=== PATIENT | female | born 1950 | race Native Hawaiian/Other Pacific Islander ===

== ENCOUNTER 2021-04-01 11:24 | Outpatient (CLI) | payer MEDICARE, SELFPAY ==
--- NOTE | 2021-04-01 11:45 | MM_ITS ---
WS: [id number] BILATERAL SCREENING DIGITAL MAMMOGRAM WITH CAD HISTORY: SCREENING COMPARISON: 08/31/2019, 08/24/2019 and 07/23/2018 Bilateral CC and MLO views submitted. Computer aided detection analyzed. Breast composition: The breasts are heterogeneously dense, which may obscure small masses. No suspici ous masses, microcalcifications or architectural distortion. There are numerous scattered calcificati ons bilaterally within each breast. No focal clusters of calcifications. MM/[place] [id number] IMPRESSION: BI-RADS: 2-Benign FOLLOW UP: 1 Year Follow-up
== END 2021-04-01 11:25 | disposition home or self-care (01) ==
LOC: RADSHAW 11:43
PROVIDERS: Visit Provider Electrodiagnostic Medicine
DX: Z12.31 Encounter for screening mammogram for malignant neoplasm of breast (principal)
CPT/HCPCS: 77067

== ENCOUNTER 2022-04-25 09:37 | Outpatient (CLI) | payer MEDICARE, OTHER, SELFPAY ==
--- NOTE | 2022-04-25 09:58 | MM_ITS ---
WS: [email or web address] VIEWS: MLO and CC views both breasts. 3D digital tomosynthesis is also included in this exam. Comparison made with prior exam of 02/01/2016, 04/13/2017, 07/23/2018, 08/24/2019, 04/01/2021.. Findings: There was no sign of mass, architectural distortion or suspicious calcification in either breast. He terogeneously dense MM/[place] [id number] Impression: BI-RADS: 2-Benign FOLLOW-UP: 1 Year Follow-up This mammogram was also analyzed by the Computer Aided Detection System R2 Imag e Project Buyer.
== END 2022-04-25 09:38 | disposition home or self-care (01) ==
LOC: RAD 09:51
PROVIDERS: PCP Electrodiagnostic Medicine; Visit Provider Electrodiagnostic Medicine
DX: Z12.31 Encounter for screening mammogram for malignant neoplasm of breast (principal)
CPT/HCPCS: 77063; 77067

== ENCOUNTER → 2022-09-17 10:55 | Outpatient (BNVA) | payer MEDICARE, OTHER, SELFPAY | PROVIDERS: PCP Electrodiagnostic Medicine; Visit Provider Nurse Practitioner Family | DX: L30.4 Erythema intertrigo (principal) | CPT/HCPCS: 99214 ==

== ENCOUNTER → 2023-01-14 10:10 | Outpatient (BNVA) | payer MEDICARE, OTHER, SELFPAY | PROVIDERS: PCP Electrodiagnostic Medicine; Visit Provider Psychiatry & Neurology Neurology | DX: G31.84 Mild cognitive impairment of uncertain or unknown etiology (principal); M54.2 Cervicalgia; R26.89 Other abnormalities of gait and mobility; R29.2 Abnormal reflex; R68.89 Other general symptoms and signs | CPT/HCPCS: 36415; 83735; 86780; 99203 ==

== ENCOUNTER 2023-01-27 11:44 | Outpatient (CLI) | payer MEDICARE, OTHER, SELFPAY ==
--- NOTE | 2023-01-27 12:15 | USCV_ITS ---
Zoe Mares Age: 72 Gender: F : 1950 Exam Date: 01/27/2023 11:54 Ordering Phys: Josh Martell MD Technologist: SEVERO Exam Location: [facility] [place] Indication: DIZZINESS AND MEMORY LOSS Risk Factors: Previous Vascular Surgery: Right Brachial BP: / Left Brachial BP: / Right Left Velocity (cm/s) Spectral Plaque Velocity (cm/s) Spectral Plaque Syst/Diast Broadening Syst/Diast Broadening 69.90/ 20.20 Prox CCA 85.50 / 19.20 69.90/ 20.20 Mid CCA 69.90 / 18.60 69.10/ 19.40 Distal CCA 68.50 / 24.20 55.20/ 17.90 Prox ICA 53.60 / 17.40 68.40/ 25.60 Mid ICA 70.70 / 29.50 101.90/39.40 Distal ICA 86.30 / 29.80 72.20 ECA 56.80 1.46 ICA/CCA 1.01 Antegrade Vertebral Antegrade 56.70/ 23.10 cm/s 48.90/ 17.90 cm/s Tri Subclavian Tri 75.10 104.4 0 CONCLUSIONS Right ICA stenosis <50%. Mild atheromatous plaque right carotid bulb/ICA. Left ICA stenosis <50%. Mild atheromatous plaque left carotid bulb/ICA. Intimal thickening in the common carotid arteries and internal carotid arteries bilaterally. Normal antegrade Doppler flow noted in the right vertebral artery. Normal antegrade Doppler flow noted in the left vertebral artery. Dhiraj Emerson MD (Electronically Signed) Final Date: 27 January 2023 16:50 S
== END 2023-01-27 11:45 | disposition home or self-care (01) ==
LOC: RAD 11:45
PROVIDERS: PCP Electrodiagnostic Medicine; Visit Provider Psychiatry & Neurology Neurology
DX: R26.89 Other abnormalities of gait and mobility (principal); I65.23 Occlusion and stenosis of bilateral carotid arteries; R42 Dizziness and giddiness; R41.3 Other amnesia; S09.90XS Unspecified injury of head, sequela; X58.XXXS Exposure to other specified factors, sequela
CPT/HCPCS: 93880

== ENCOUNTER 2023-02-19 09:53 | Outpatient (CLI) | payer MEDICARE, OTHER, SELFPAY ==
--- NOTE | 2023-02-19 10:15 | MR_ITS ---
WS: [email or web address] MRI BRAIN WITHOUT CONTRAST HISTORY: R41.3 - Other amnesia COMPARISON: None available. TECHNIQUE: Diffusion imaging, multiplanar T1, T2 and FLAIR imaging obtained. No evidence for acute infarct or hemorrhage. Tellez-white matter differentiation is normal. Mild volume loss and small vessel ischemic disease. No prior infarct. Mild hippocampal atrophy. Ventricles and extra-axial spaces are normal. No inferior displacement of cerebellar tonsils. The sella turcica and pituitary gland are unremarkabl e. Dural venous sinuses and [place] demonstrate no abnormality on this unenhanced studies. Paranasal sinuses: Clear. Mastoid air cells: Normal. Calvarium and scalp: Intact. IMPRESSION: 1. No acute infarct or hemorrhage. 2. Mild volume loss and atrophy. 3. Very slight atrophy of the hippocampal formations. 4. No prior infarct.
--- NOTE | 2023-02-19 11:00 | MR_ITS ---
WS: [email or web address] MRI CERVICAL SPINE NONCONTRAST HISTORY: R41.3 - Other amnesia COMPARISON: None available. Technique: Multiplanar, multisequence noncontrast imaging of the cervical spine. Diffuse disc space narrowing is moderate throughout the cervical spine. Cervical endplate osteophytes at all levels. No fractures or marrow edema. T2 anterolisthesis by 2.5 mm. Signal within the cervical cord is normal. Visualized posterior fossa is unremarkable. Craniocervical junction, C1 and C2 relationship, odontoid process and soft tissues are normal. C2-C3: Normal. C3-C4: Diffuse osteophytic ridging with bilateral facet joint arthritis. Moderate LEFT and mild RIGHT foraminal stenosis due to osteophytes. C4-C5: Diffuse annular disc bulging and osteophytic ridging. Facet joint arthritis. Mild foraminal na rrowing. C5-C6: Diffuse osteophytic ridging encroaching upon the ventral thecal sac. Mild central and bilatera l foraminal stenosis. C6-C7: Diffuse annular disc bulging, osteophytic ridging and facet arthritis. Mild central and RIGHT foraminal stenosis. C7-T1: Less than 2 mm anterolisthesis of C7. No stenosis. Paraspinal soft tissue are normal. IMPRESSION: 1. Multilevel moderate spondylosis throughout the cervical spine. 2. No acute vertebral body fracture. 3. Osteophytic ridging and disc bulging at most levels of the cervical spine most significant from C3 -4 through C6-7. 4. C3-4: Moderate LEFT and mild RIGHT foraminal stenosis due to osteophytes. 5. C5-6: Mild central and bilateral foraminal stenosis. 6. C6-7: Mild central and RIGHT foraminal stenosis.
== END 2023-02-19 09:54 | disposition home or self-care (01) ==
LOC: RAD 09:53
PROVIDERS: PCP Electrodiagnostic Medicine; Visit Provider Psychiatry & Neurology Neurology
DX: R41.3 Other amnesia (principal); M50.31 Other cervical disc degeneration, high cervical region; M47.812 Spondylosis without myelopathy or radiculopathy, cervical region; M48.02 Spinal stenosis, cervical region; M25.78 Osteophyte, vertebrae
CPT/HCPCS: 70551; 72141

== ENCOUNTER → 2023-04-28 10:27 | Outpatient (BNVA) | payer MEDICARE, OTHER, SELFPAY | PROVIDERS: PCP Electrodiagnostic Medicine; Visit Provider Psychiatry & Neurology Neurology | DX: G31.84 Mild cognitive impairment of uncertain or unknown etiology (principal); M54.2 Cervicalgia; R29.2 Abnormal reflex; R68.89 Other general symptoms and signs | CPT/HCPCS: 99212 ==

== ENCOUNTER → 2023-05-14 11:31 | Outpatient (BNVA) | payer MEDICARE, OTHER, SELFPAY | PROVIDERS: PCP Electrodiagnostic Medicine; Visit Provider Orthopaedic Surgery | DX: M54.2 Cervicalgia (principal); G31.84 Mild cognitive impairment of uncertain or unknown etiology | CPT/HCPCS: 72050; 99204 ==

== ENCOUNTER → 2023-08-11 13:09 | Outpatient (BNVA) | payer MEDICARE, OTHER, SELFPAY | PROVIDERS: PCP Electrodiagnostic Medicine; Visit Provider Psychiatry & Neurology Neurology | DX: G31.84 Mild cognitive impairment of uncertain or unknown etiology (principal); M54.2 Cervicalgia; R29.2 Abnormal reflex; R68.89 Other general symptoms and signs | CPT/HCPCS: 99212 ==

== ENCOUNTER → 2023-10-01 11:15 | Outpatient (BNVA) | payer MEDICARE, OTHER, SELFPAY | PROVIDERS: PCP Electrodiagnostic Medicine; Visit Provider Internal Medicine | DX: E03.9 Hypothyroidism, unspecified (principal); R63.4 Abnormal weight loss; Z13.820 Encounter for screening for osteoporosis; G31.84 Mild cognitive impairment of uncertain or unknown etiology; Z68.21 Body mass index [BMI] 21.0-21.9, adult; Z79.890 Hormone replacement therapy | CPT/HCPCS: 99214 ==

== ENCOUNTER 2023-10-04 23:06 | Emergency (ER) | payer MEDICARE, OTHER, SELFPAY ==
[2023-10-04 23:16] VITALS: BP 144/80; PULSE 63; RESP 17; TEMP 36.7; O2SAT 100; BMI 20.1
--- NOTE | 2023-10-04 23:36 | ED_ITS ---
HPI - Skin/Abscess/Foreign Bdy General: Chief complaint: Skin/Abscess/Foreign Body Stated complaint: Animal bite Time Seen by Provider: 10/04/23 23:23 History of Present Illness: Patient is a 72-year-old female who states that around 7 PM this evening she tried to move her cat out of her windowsill and the cat became very upset and bit her several times on both hands. She sustained multiple superficial bites to the left hand primarily over the dorsum of the left hand around the thumb, index and long finger. She also sustained a couple of bites to the right index finger. No active bleeding. No open wounds requiring closure or sutures. Associated symptoms: Deny chills, fever(s), nausea or vomiting Review of Systems Const: Denies: fever(s), chills or diaphoresis Card: Denies: chest pain Resp: Denies: dyspnea GI: Denies: abdominal pain, nausea or vomiting Skin/Breast: Denies: rash Neuro: Denies: headache(s) [facility] ED PFSH: Social History Smoking and tobacco/nicotine status: never used tobacco/nicotine Alcohol intake: never Substance/Drug Use: never Physical Exam Const: COMMON NORMALS: no acute distress, average body habitus, alert and well nourished GENERAL APPEARANCE: cooperative ORIENTATION/CONSCIOUSNESS: Yes awake HENMT: COMMON NORMALS: normocephalic and atraumatic HEAD & SCALP: normocephalic and atraumatic Eye: COMMON NORMALS: conjunctivae normal CONJUNCTIVA: Yes conjunctivae normal Neck/C-Spine: GENERAL: Yes normal visual inspection Resp: COMMON NORMALS: normal respiratory effort, No retractions and No use of accessory muscles Cardio: COMMON NORMALS: regular rhythm and Peripheral pulses 2+ throughout RHYTHM: regular rhythm PERIPHERAL PULSES: Peripheral pulses 2+ throughout GI: COMMON NORMALS: Soft to palpation and non-tender PALPATION: Yes Soft to palpation Extremity: COMMON NORMALS: full ROM and no pedal edema NARRATIVE EXTREMITY EXAM: Left hand has multiple superficial cat bites and abrasions primarily noted to the dorsum of the hand proximal to the thumb, index and long finger. Some superficial wounds noted to the fingers of the left hand in the thumb, index and long finger. Patient also has a couple of bite wounds to the right index finger with puncture leal. No open lacerations or wounds requiring closure. Left dorsum of the hand around the MCP joint is red and mildly swollen. Patient is neurovascularly intact. Neuro: COMMON NORMALS: no focal motor deficits SENSORIUM/ORIENTATION: Yes alert Skin: COMMON NORMALS: no rashes or lesions noted GENERAL SKIN EXAM: no rashes or lesions noted Course Vital Signs: Vital signs: Vital Signs Temperature 98.1 F 10/04/23 23:16 Pulse Rate 63 10/04/23 23:16 Respiratory Rate 17 10/04/23 23:16 Blood Pressure 144/80 10/04/23 23:16 Pulse Oximetry 100 10/04/23 23:16 Oxygen Delivery Me thod Room Air 10/04/23 23:16 MDM - Skin/Abscess/Foreign Bdy Medicial Decision Making 72-year-old female who sustained cat bite from her home Tonight to the left and right hand. Cat is immunized and they are certainly not having any consideration of euthanasia. They will continue to watch the cat at home. Patient is unsure of her last tetanus immunization will have her tetanus updated. I will give her a dose of Augmentin here tonight and discharged with a prescription for Augmentin. No radiology studies performed this visit Discharge Plan Discharge Patient Disposition: Home Clinical Impression: Cat bite involving extremity Condition: Stable Prescriptions: New amoxicillin-pot clavulanate 875-125 mg tablet 1 tab PO Q12H Qty: 14 0RF No Action levothyroxine 50 mcg capsule 50 mcg PO DAILY multivitamin Tablet 1 tab PO DAILY cholecalciferol (vitamin D3) 25 mcg (1,000 unit) capsule 25 mcg PO DAILY coenzyme Q10 [Co Q-10] 10 mg capsule 10 mg PO TID miconazole nitrate [Zeasorb AF] 2 % powder 1 applic topical DAILY Qty: 85 3RF Rx Instructions: Apply to micro-fiber towel. ketoconazole 2 % cream 1 applic topical BID Qty: 60 3RF Rx Instructions: Apply to affected areas and skin folds x3 weeks. May use as needed for flares. atorvastatin 10 mg tablet 20 mg PO DAILY biotin 1 mg capsule 1 mg PO DAILY levothyroxine 75 mcg tablet PO temazepam 15 mg capsule 30 mg PO ONCE Qty: 60 3RF Rx Instructions: Take 1-2 at bedtime for sleep donepezil 10 mg tablet 10 mg PO DAILY Qty: 30 3RF donepezil 5 mg tablet 5 mg PO DAILY Qty: 7 0RF Rx Instructions: Begin 10 mgs once this is finished Discharge Orders: Discharge ED (Routine); Ordered 10/04/23 Ordered By: Daniel Mcfarlane Referrals: Carlos Manuel Gould DO [Primary Care Provider] - Discharge Activity: Increase activity as tolerated Patient Instructions: Opioid Safety, Pain Management, Animal Bite (ED) Activity Restrictions/Additional Instructions: Keep your wounds clean and dry. Take antibiotics as directed. Follow-up with your primary care provider for recheck in 3 to 5 days. Return for any signs of infection such as increasing redness, swelling, fevers, pain, or any other concerns. Coding Level of Care Code ED Nurse Emergency for Bob Mancia
[2023-10-04] MEDS: amoxicillin-clav 875-125 mg Tablet 1 TAB PO (23:46)
[2023-10-04] MEDS: tetanus-dipt-pertussis 0.5 mL SDV IM (23:46)
== END 2023-10-05 00:01 | disposition home or self-care (01) ==
PROVIDERS: Emergency Provider Student in an Organized Health Care Education/Training Program; PCP Electrodiagnostic Medicine
DX: S60.572A Other superficial bite of hand of left hand, initial encounter (principal); S60.571A Other superficial bite of hand of right hand, initial encounter; W55.01XA Bitten by cat, initial encounter; Z23 Encounter for immunization
CPT/HCPCS: 90471; 90715; 99283

== ENCOUNTER 2023-10-05 13:42 | Outpatient (CLI) | payer MEDICARE, OTHER, SELFPAY ==
--- NOTE | 2023-10-05 14:00 | XR_ITS ---
WS: [email or web address] SCREENING DEXA SCAN Njuice CLINICAL INFORMATION: screening for osteoporosis COMPARISON: 2019 FINDINGS: The L1-L4 bone mineral density measures 1.095 g/cm2. This corresponds to a T score score of -0.7 and Z score of 1.6. Left femoral neck bone mineral density measures 0.922 g/cm2. This corresponds to a T score of -0.7 an d Z score of 1.3. Right femoral neck bone mineral density measures 0.925 g/cm2. This corresponds to a T score -0.7of an d Z score of 1.3. Mean femoral neck bone mineral density measures 0.923 g/cm2. This corresponds to a T score of -0.7 an d Z score of 1.3. XR/XR DEXA axial skeleton* [id number] IMPRESSION: Normal bone mineralization. Patient's FRAX calculated 10 year probability for major osteoporotic fracture i s 8.7% and osteoporotic hip fracture is 1.1%. Bone mineral density lumbar spine decreased -5.6% Bone mineral density femoral necks decreased -8.9%
== END 2023-10-05 13:43 | disposition home or self-care (01) ==
LOC: RAD 13:42
PROVIDERS: PCP Electrodiagnostic Medicine; Visit Provider Internal Medicine
DX: Z13.820 Encounter for screening for osteoporosis (principal)
CPT/HCPCS: 77080

== ENCOUNTER 2023-10-06 10:22 | Emergency (ER) | payer MEDICARE, OTHER, SELFPAY ==
[2023-10-06 10:25] VITALS: BP 109/66; PULSE 74; RESP 18; TEMP 36.8; O2SAT 98
--- NOTE | 2023-10-06 10:55 | XR_ITS ---
WS: [id number] XR chest 1V portable [id number] REASON FOR EXAM: cp FINDINGS: Moderate tortuosity and ectasia of the thoracic aorta. Normal heart size. Calcified granulomas disease in both hemithoraces. No acute or subacute pulmonary parenchymal or pleural abnormality. Mild levoscoliosis of the lower thoracic spine with significant degenerative spondylosis. Moderate osteoarthritis in both shoulder joints. XR/XR chest 1V portable [id number] IMPRESSION: No acute or subacute abnormality of the chest.
--- NOTE | 2023-10-06 10:55 | ECG_ITS ---
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 Measurements Intervals [place] Rate: 64 P: 38 SD: 132 QRS: 37 QRSD: 86 T: 27 QT: 422 QTc: 438 Interpretive Statements SINUS RHYTHM WITH OCCASIONAL VENTRICULAR PREMATURE COMPLEXES No previous ECG available for comparison Electronically Signed On 10-06-2023 14:57:22 CDT by Marco A Martinez M.D. [id number]
[2023-10-06 11:38] LABS: Basophils % 0.5 %; Eosinophils # 0.1 10^3/uL (0.0-0.8); Eosinophils % 0.6 %; Lymphocytes # 1.9 10^3/uL (0.8-4.8); Lymphocytes % 22.1 %; Mean Corpuscular HGB Conc 33.6 g/dL (30-55); Mean Corpuscular Hemoglobin 31.4 pg (27-33); Mean Corpuscular Volume 93.2 fl (85-98); Mean Platelet Volume 8.8 fL (7.4-10.4); Monocytes % 11.4 %; Neutrophils # 5.69 10^3/uL (1.8-7.7); Neutrophils % 64.9 %; Nucleated Red Blood Cells % 0 %; Platelet Count 333 10^3/cmm (157-399); Red Blood Count 3.54 10^6/uL (3.85-5.65); Red Cell Distribution Width 12.4 % (12.1-15.1); White Blood Count 8.76 10^3/uL (3.29-11.43)
[2023-10-06 11:57] LABS: Troponin(5th) Baseline 20 ng/L (0-10)
[2023-10-06 11:59] LABS: Alanine Aminotransferase 11 U/L (0-33); Albumin Level 4.2 g/dL (3.5-5.2); Alkaline Phosphatase 103 U/L (35-105); Aspartate Amino Transferase 19 U/L (0-32); Blood Urea Nitrogen 26 mg/dL (8-23); Calcium 9.2 mg/dL (8.5-10.5); Carbon Dioxide 25 mmol/L (22-29); Chloride 99 mmol/L (98-107); Creatinine Clr Calc Pharmacy 39.4251; Globulin 2.3 g/dL (1.3-4.6); Glucose 123 mg/dL (65-115); Osmolality Calculated 292 mOsm/kg (285-295); Sodium 138 mmol/L (136-145); Total Bilirubin 0.7 mg/dL (0.15-1.2); Total Protein 6.5 g/dL (6.6-8.7)
--- NOTE | 2023-10-06 12:34 | ED_ITS ---
HPI - Syncope 2 General: Chief Complaint: Syncope Stated Complaint: Syncope Time Seen by Provider: 10/06/23 12:34 History of Present Illness: 70-year-old female presents emergency ro om she was at the podiatry clinic and had a syncopal episode she been standing for about [address] got lightheaded and dizzy she felt like she was going to faint she was lowered to the ground did not strike her head does not seem to have completely lost consciousness she said she was just fuzzy for a time. She denies any chest or abdominal pain. Associated symptoms: Deny abdominal pain, chest pain or fever(s) Review of Systems 2 Const: Denies: fever(s) or chills Card: Denies: chest pain Resp: Denies: dyspnea GI: Denies: abdominal pain : Denies: dysuria, urinary frequency or urinary urgency Musc: Denies: neck pain or back pain Skin/Breast: Denies: rash PFSH ED 2 PFSH: Medical History (Updated 10/06/23 @ 14:23 by Sadi Weber DO) Hypothyroid Mild cognitive impairment Social History Smoking and tobacco/nicotine status: never used tobacco/nicotine Alcohol intake: never Substance/Drug Use: never Physical Exam 2 Const: COMMON NORMALS: no acute distress GENERAL APPEARANCE: cooperative and comfortable ORIENTATION/CONSCIOUSNESS: Yes awake, Yes oriented to person, Yes oriented to place and Yes oriented to time HENMT: COMMON NORMALS: normocephalic, atraumatic and hearing grossly normal bilaterally HEAD & SCALP: normocephalic and atraumatic Resp: COMMON NORMALS: normal respiratory effort, No retractions, No use of accessory muscles and clear to auscultation bilaterally AUSCULTATION: clear to auscultation bilaterally Cardio: COMMON NORMALS: regular rate, regular rhythm and No murmurs present (Cardio) RATE: regular rate RHYTHM: regular rhythm GI: COMMON NORMALS: Soft to palpation and No hepatosplenomegaly present A USCULTATION: Yes normoactive bowel sounds PALPATION: Yes Soft to palpation, No Tenderness to palpation present (GI), No Guarding due to palpation present (GI) and Yes No hepatosplenomegaly present Extremity: COMMON NORMALS: normal to inspection, capillary refill normal, no clubbing, cyanosis or edema, no calf tenderness and no pedal edema Neuro: SENSORIUM/ORIENTATION: Yes oriented to person, Yes oriented to place and Yes oriented to time Skin: COMMON NORMALS: no rashes or lesions noted GENERAL SKIN EXAM: no rashes or lesions noted Course 2 Vital Signs: Vital signs: Vital Signs Temperature 98.2 F 10/06/23 10:25 Pulse Rate 49 L 10/06/23 14:26 Respiratory Rate 16 10/06/23 14:26 Blood Pressure 159/57 10/06/23 14:26 Pulse Oximetry 96 10/06/23 14:26 Oxygen Delivery Me thod Room Air 10/06/23 13:03 MDM - Syncope Medical Decision Making No symptoms with orthostatic vitals. No significant drop. Patient is feeling better no further symptoms. Cardiac enzymes and EKG negative she was noted to be a bit bradycardic. Will discharge her home set up for an outpatient 72-hour Holter monitor. Lab Data 10/06/23 11:23 10/06/23 11:23 Radiology Impressions Chest X-Ray 10/06/23 10:55 IMPRESSION: No acute or subacute abnormality of the chest. Laboratory Results WBC 8.76 10^3/uL (3.29-11.43) 10/06/23 11:23 RBC 3.54 10^6/uL (3.85-5.65) L 10/06/23 11:23 Hgb 11.10 g/dL (11.27-16.99) L 10/06/23 11:23 Hct 33.0 % (36-47) L 10/06/23 11:23 MCV 93.2 fl (85-98) 10/06/23 11:23 MCH 31.4 pg (27-33) 10/06/23 11:23 MCHC 33.6 g/dL (30-55) 10/06/23 11:23 RDW 12.4 % (12.1-15.1) 10/06/23 11:23 Plt Count 333 10^3/cmm (157-399) 10/06/23 11:23 MPV 8.8 fL (7.4-10.4) 10/06/23 11:23 Neut % (Auto) 64.9 % 10/06/23 11:23 Lymph % (Auto) 22.1 % 10/06/23 11:23 Elk % (Auto) 11.4 % 10/06/23 11:23 Eos % (Auto) 0.6 % 10/06/23 11:23 Baso % (Auto) 0.5 % 10/06/23 11:23 Neut # (Auto) 5.69 10^3/uL (1.8-7.7) 10/06/23 11:23 Lymph # (Auto) 1.9 10^3/uL (0.8-4.8) 10/06/23 11:23 Elk # (Auto) 1.0 10^3/uL (0.2-0.9) H 10/06/23 11:23 Eos # (Auto) 0.1 10^3/uL (0.0-0.8) 10/06/23 11:23 Baso # (Auto) 0.0 10^3/uL (0.0-0.1) 10/06/23 11:23 Nucleated RBC % (auto) 0 % 10/06/23 11:23 Nucleated RBCs # 0.0 /100WBC 10/06/23 11:23 Sodium 138 mmol/L (136-145) 10/06/23 11:23 Potassium 4.0 mmol/L (3.5-5.1) 10/06/23 11:23 Chloride 99 mmol/L (98-107) 10/06/23 11:23 Carbon Dioxide 25 mmol/L (22-29) 10/06/23 11:23 Anion Gap 18.0 (5-19) 10/06/23 11:23 BUN 26 mg/dL (8-23) H 10/06/23 11:23 Creatinine 1.0 mg/dL (0.5-0.9) H 10/06/23 11:23 GFR Calculation Not Reportable 10/06/23 11:23 Glucose 123 mg/dL (65-115) H 10/06/23 11:23 Calculated Osmolality 292 mOsm/kg (285-295) 10/06/23 11:23 Calcium 9.2 mg/dL (8.5-10.5) 10/06/23 11:23 Total Bilirubin 0.7 mg/dL (0.15-1.2) 10/06/23 11:23 AST 19 U/L (0-32) 10/06/23 11:23 ALT 11 U/L (0-33) 10/06/23 11:23 Alkaline Phosphatase 103 U/L (35-105) 10/06/23 11:23 Troponin T Baseline 20 ng/L (0-10) H 10/06/23 11:23 Troponin T 120 Minute 9.78 ng/L (0-10) 10/06/23 13:00 Delta Troponin T -10.22 ABS# (0-10) L 10/06/23 13:00 Total Protein 6.5 g/dL (6.6-8.7) L 10/06/23 11:23 Albumin 4.2 g/dL (3.5-5.2) 10/06/23 11:23 Globulin 2.3 g/dL (1.3-4.6) 10/06/23 11:23 All radiology interpretation(s) finalized by discharge EKG Data EKG 1: Interpretation: Sinus rhythm occasional PVC no acute ST changes rate of 64 [place] interval 132 corrected QT at 438 EKG 2: Interpretation: Sinus rhythm occasional PVC rate of 51 W[place] interval 141 corrected QT 466. No acute ST changes noted Discharge Plan Discharge Patient Disposition: Home Clinical Impression: Syncope due to orthostatic hypotension, Bradycardia Condition: Stable Prescriptions: No Action levothyroxine 50 mcg capsule See Rx Instructions .ROUTE .COMPLEX Rx Instructions: TAKE 1 TABLET BY MOUTH ON THURSDAY AND THURSDAY. cholecalciferol (vitamin D3) 25 mcg (1,000 unit) capsule 25 mcg PO .@1PM coenzyme Q10 [Co Q-10] 10 mg capsule 10 mg PO DAILY ketoconazole 2 % cream 1 applic topical BID Qty: 60 3RF Rx Instructions: Apply to affected areas and skin folds x3 weeks. May use as needed for flares. biotin 1 mg capsule 1 mg PO DAILY levothyroxine 75 mcg tablet See Rx Instructions .ROUTE .COMPLEX Rx Instructions: TAKE 1 TABLET BY MOUTH ON THURSDAY, THURSDAY, THURSDAY AND THURSDAY. amoxicillin-pot clavulanate 875-125 mg tablet 1 tab PO Q12H Qty: 14 0RF atorvastatin 20 mg tablet 20 mg PO QPM fluoxetine 20 mg capsule 20 mg PO DAILY melatonin 1 mg Tablet 1 - 5 mg PO BEDTIME PRN (Reason: Sleep) donepezil 10 mg tablet 10 mg PO QAM Zeasorb AF 2 % powder 1 applic topical DAILY PRN (Reason: Skin Irritation) Rx Instructions: Apply to micro-fiber towel. temazepam 15 mg capsule 15 - 30 mg PO BEDTIME PRN (Reason: Sleep) Discharge Orders: Discharge ED (Routine); Ordered 10/06/23 Ordered By: Sadi Weber Referrals: Carlos Manuel Gould DO [Primary Care Provider] - Discharge Diet: Usual diet Discharge Activity: Resume usual activity Patient Instructions: Opioid Safety, Pain Management Activity Restrictions/Additional Instructions: Thank you for choosing [facility] for your healthcare needs today. It is very important that you follow up as instructed or that you return to the Emergency Department should you have concerns or if your condition changes or worsens in any way. You were seen in the emergency room for syncopal episode likely related to orthostasis. Your cardiac enzymes and EKGs were negative. There is no acute changes. Will discharge you home. You were noted to be somewhat bradycardic (slow heart rate). Recommend that you have a 72-hour Holter monitor case management will set this up for you. Coding Level of Care Code ED Child Development Director for Bob Mancia
[2023-10-06 12:47] VITALS: BP 131/78; BP 132/79; BP 142/73; PULSE 56; PULSE 59; PULSE 61
--- NOTE | 2023-10-06 12:55 | ECG_ITS ---
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 Measurements Intervals [place] Rate: 51 P: 40 LA: 141 QRS: 28 QRSD: 90 T: 44 QT: 503 QTc: 466 Interpretive Statements SINUS BRADYCARDIA WITH OCCASIONAL VENTRICULAR PREMATURE COMPLEXES PROLONGED QT INTERVAL Compared to ECG 10/06/2023 10:31:10 Prolonged QT interval now present Sinus rhythm no longer present Electronically Signed On 10-06-2023 14:58:15 CDT by Marco A Martinez M.D. [id number]
[2023-10-06] MEDS: sodium chloride 0.9% 500 ML 999 ML IV (13:00)
[2023-10-06 13:03] VITALS: BP 132/79; PULSE 53; RESP 16; O2SAT 96
[2023-10-06 13:38] LABS: Troponin 5 2HR 9.78 ng/L (0-10); Troponin 5 2HR Delta -10.22 ABS# (0-10)
--- NOTE | 2023-10-06 13:46 | PC.PHAR ---
PT STATES DOES NOT TAKE MELATONIN AND TEMAZEPAM ON THE SAME NIGHT.
[2023-10-06 14:26] VITALS: BP 159/57; PULSE 49; RESP 16; O2SAT 96
--- NOTE | 2023-10-07 11:03 | DCPLANNER ---
Message sent to [facility] for 72 hr Holter Monitor -referral
== END 2023-10-06 14:27 | disposition home or self-care (01) ==
PROVIDERS: Emergency Medicine; Emergency Provider Family Medicine; PCP Electrodiagnostic Medicine
DX: I95.1 Orthostatic hypotension (principal); R00.1 Bradycardia, unspecified
CPT/HCPCS: 36415; 71045; 80053; 84484; 85025; 93005; 96360; 99285; J7040

== ENCOUNTER 2023-10-08 07:38 | Outpatient (CLI) | payer MEDICARE, OTHER, SELFPAY ==
[2023-10-08 08:24] LABS: Cortisol Random 26.04 ug/dL (2.47-19.5); Free T4 Free Thyroxine 1.57 ng/dL (0.82-1.77); Thyroid Stimulating Hormone 3.49 uIU/mL (0.27-4.20)
[2023-10-08 08:58] LABS: Prolactin 10.91 ng/mL (4.8-23.3)
[2023-10-15 12:36] LABS: IGF1 LC/MS 79 ng/mL (34-245); Z Score (Female) -0.6 SD (-2.0 - +2.0)
== END 2023-10-08 07:39 | disposition home or self-care (01) ==
LOC: LAB 07:39
PROVIDERS: PCP Electrodiagnostic Medicine; Visit Provider Internal Medicine
DX: E03.9 Hypothyroidism, unspecified (principal); R63.4 Abnormal weight loss; Z13.820 Encounter for screening for osteoporosis; G31.84 Mild cognitive impairment of uncertain or unknown etiology
CPT/HCPCS: 36415; 82533; 84146; 84305; 84439; 84443

== ENCOUNTER → 2023-10-15 08:53 | Outpatient (BNVA) | payer MEDICARE, OTHER, SELFPAY | PROVIDERS: PCP Electrodiagnostic Medicine; Visit Provider Internal Medicine | DX: R73.09 Other abnormal glucose (principal); E03.9 Hypothyroidism, unspecified; G31.84 Mild cognitive impairment of uncertain or unknown etiology; D64.9 Anemia, unspecified; R63.4 Abnormal weight loss; Z13.820 Encounter for screening for osteoporosis; Z79.890 Hormone replacement therapy; Z68.21 Body mass index [BMI] 21.0-21.9, adult | CPT/HCPCS: 99214 ==

== ENCOUNTER → 2023-10-19 10:17 | Outpatient (BNVA) | payer MEDICARE, OTHER, SELFPAY | PROVIDERS: PCP Electrodiagnostic Medicine; Visit Provider Internal Medicine | DX: R00.1 Bradycardia, unspecified (principal); I49.1 Atrial premature depolarization; I49.3 Ventricular premature depolarization | CPT/HCPCS: 93242 ==

== ENCOUNTER 2024-01-07 11:13 | Outpatient (CLI) | payer MEDICARE, OTHER, SELFPAY ==
--- NOTE | 2024-01-07 11:14 | MM_ITS ---
WS: [id number] BILATERAL SCREENING DIGITAL TOMOSYNTHESIS MAMMOGRAM WITH CAD HISTORY: SCREENING COMPARISON: 04/25/2022, 04/01/2021 Bilateral CC and MLO views with tomosynthesis and synthetic mammography submitted. Computer aided det ection analyzed. Breast composition: The breasts are heterogeneously dense, which may obscure small masses. No suspici ous masses, microcalcifications or architectural distortion. Numerous calcifications in each breast. Calcifications in a linear distribution in the LEFT breast are skin calcifications. Majority of the c alcifications are otherwise stable and benign. No distortion. MM/MM scr BI tomosynthesis [id number] IMPRESSION: BI-RADS: 2 - Benign FOLLOW UP: 1 Year Follow-up
== END 2024-01-07 11:14 | disposition home or self-care (01) ==
LOC: RAD 11:13
PROVIDERS: PCP Electrodiagnostic Medicine; Visit Provider Electrodiagnostic Medicine
DX: Z12.31 Encounter for screening mammogram for malignant neoplasm of breast (principal); R92.333 Mammographic heterogeneous density, bilateral breasts; R92.1 Mammographic calcification found on diagnostic imaging of breast
CPT/HCPCS: 77063; 77067

== ENCOUNTER → 2024-02-09 13:13 | Outpatient (BNVA) | payer MEDICARE, OTHER, SELFPAY | PROVIDERS: PCP Electrodiagnostic Medicine; Visit Provider Psychiatry & Neurology Neurology | DX: F03.90 Unspecified dementia, unspecified severity, without behavioral disturbance, psychotic disturbance, mood disturbance, and anxiety (principal); M54.2 Cervicalgia; R29.2 Abnormal reflex; R68.89 Other general symptoms and signs | CPT/HCPCS: 36415; 82525; 82542; 83520; 99212; 99213 ==

== ENCOUNTER 2024-04-15 11:23 | Outpatient (CLI) | payer MEDICARE, OTHER, SELFPAY ==
[2024-04-15 11:48] LABS: Basophils # 0.1 10^3/uL (0.0-0.1); Basophils % 0.6 %; Eosinophils # 0.2 10^3/uL (0.0-0.8); Eosinophils % 1.9 %; Hematocrit 40.1 % (36-47); Lymphocytes # 4.3 10^3/uL (0.8-4.8); Lymphocytes % 39.5 %; Mean Corpuscular HGB Conc 32.4 g/dL (30-55); Mean Corpuscular Hemoglobin 31.1 pg (27-33); Mean Corpuscular Volume 95.9 fl (85-98); Mean Platelet Volume 8.5 fL (7.4-10.4); Monocytes # 1.1 10^3/uL (0.2-0.9); Monocytes % 10.2 %; Neutrophils # 5.11 10^3/uL (1.8-7.7); Neutrophils % 47.3 %; Nucleated Red Blood Cells % 0 %; Platelet Count 315 10^3/cmm (157-399); Red Blood Count 4.18 10^6/uL (3.85-5.65); Red Cell Distribution Width 12.2 % (12.1-15.1)
[2024-04-15 12:09] LABS: Estmated Average Glucose 114; Hemoglobin A1C 5.6 % (4.0-6.0)
[2024-04-15 12:15] LABS: Free T4 Free Thyroxine 1.06 ng/dL (0.82-1.77); Thyroid Stimulating Hormone 12.47 uIU/mL (0.27-4.20)
== END 2024-04-15 11:24 | disposition home or self-care (01) ==
PROVIDERS: PCP Electrodiagnostic Medicine; Visit Provider Internal Medicine
DX: D64.9 Anemia, unspecified (principal); R73.09 Other abnormal glucose; E03.9 Hypothyroidism, unspecified; G31.84 Mild cognitive impairment of uncertain or unknown etiology
CPT/HCPCS: 36415; 83036; 84439; 84443; 85025

== ENCOUNTER → 2024-04-22 10:34 | Outpatient (BNVA) | payer MEDICARE, OTHER, SELFPAY | PROVIDERS: PCP Electrodiagnostic Medicine; Visit Provider Internal Medicine | DX: E03.9 Hypothyroidism, unspecified (principal); R73.09 Other abnormal glucose; G31.84 Mild cognitive impairment of uncertain or unknown etiology; R63.4 Abnormal weight loss; Z13.820 Encounter for screening for osteoporosis; D64.9 Anemia, unspecified | CPT/HCPCS: 99214 ==

== ENCOUNTER 2024-06-15 08:56 | Outpatient (CLI) | payer MEDICARE, OTHER, SELFPAY ==
[2024-06-15 10:01] LABS: Free T4 Free Thyroxine 1.24 ng/dL (0.82-1.77); Thyroid Stimulating Hormone 1.86 uIU/mL (0.27-4.20)
== END 2024-06-15 08:57 | disposition home or self-care (01) ==
PROVIDERS: PCP Electrodiagnostic Medicine; Visit Provider Internal Medicine
DX: G31.84 Mild cognitive impairment of uncertain or unknown etiology (principal); E03.9 Hypothyroidism, unspecified
CPT/HCPCS: 36415; 84439; 84443

== ENCOUNTER → 2024-06-22 11:40 | Outpatient (BNVA) | payer MEDICARE, OTHER, SELFPAY | PROVIDERS: PCP Electrodiagnostic Medicine; Visit Provider Internal Medicine | DX: E03.9 Hypothyroidism, unspecified (principal); R73.09 Other abnormal glucose; G31.84 Mild cognitive impairment of uncertain or unknown etiology | CPT/HCPCS: 99214 ==

== ENCOUNTER → 2024-08-01 14:36 | Outpatient (BNVA) | payer MEDICARE, OTHER, SELFPAY | PROVIDERS: PCP Electrodiagnostic Medicine; Visit Provider Psychiatry & Neurology Neurology | DX: G31.84 Mild cognitive impairment of uncertain or unknown etiology (principal); M54.2 Cervicalgia; R29.2 Abnormal reflex; R68.89 Other general symptoms and signs | CPT/HCPCS: 99212 ==

== ENCOUNTER → 2024-10-11 14:08 | Outpatient (BNVA) | payer MEDICARE, OTHER, SELFPAY | PROVIDERS: PCP Electrodiagnostic Medicine; Visit Provider Psychiatry & Neurology Neurology | DX: G31.84 Mild cognitive impairment of uncertain or unknown etiology (principal); G30.9 Alzheimer's disease, unspecified | CPT/HCPCS: 80053; 84439; 84443; 85025; 96116; 99212 ==

== ENCOUNTER 2024-10-24 14:15 | Outpatient (CLI) | payer MEDICARE, SELFPAY ==
--- NOTE | 2024-10-24 14:30 | MR_ITS ---
WS: [id number] MRI BRAIN WITH AND WITHOUT CONTRAST HISTORY: G30.9 - Alzheimer's disease, unspecified COMPARISON: 02/19/2023 TECHNIQUE: Multiplanar imaging performed through the brain with MultiHance 14 ml's IV. No acute infarcts are seen. Tellez-white matter differentiation is well preserved. Mild hippocampal atrophy. Similar to the prior study. There are scattered T2 and FLAIR signal hyperintensities in the periventricular white matter which are similar to the prior study. No susceptibility artifacts or prior lacunar infarcts. Ventricles and extra-axial spaces are normal. Clivus and pituitary gland are normal. Visualized posterior fossa and brainstem are also normal. Very minimal ectopia of the cerebellar tonsils. No enhancing masses. Small venous angioma LEFT parietal occipital junction. Very subtle blush like area of enhancement involving the RIGHT caudate may be an artifact. Very nonspecific finding and not visualized on all sequences. Dural venous sinuses are normal. Paranasal sinuses: Well aerated with no significant disease. Mastoid air cells: Normal. Calvarium and scalp: Normal. MR/MR head wo/w con [id number] IMPRESSION: 1. No acute infarct. 2. No enhancing masses in the cerebrum or cerebellum. 3. Mild hippocampal atrophy, unchanged. 4. LEFT parietal occipital junction venous angioma.
[2024-10-24] MEDS: gadobenate dimeglumine 20 mL vial IV (15:16)
== END 2024-10-24 14:16 | disposition home or self-care (01) ==
LOC: RAD 14:16
PROVIDERS: PCP Electrodiagnostic Medicine; Visit Provider Psychiatry & Neurology Neurology
DX: G30.9 Alzheimer's disease, unspecified (principal); F02.80 Dementia in other diseases classified elsewhere, unspecified severity, without behavioral disturbance, psychotic disturbance, mood disturbance, and anxiety
CPT/HCPCS: 70553

== ENCOUNTER 2024-12-14 13:03 | Outpatient (CLI) | payer MEDICARE, OTHER, SELFPAY ==
[2024-12-14 13:59] LABS: Free T4 Free Thyroxine 1.34 ng/dL (0.82-1.77); Thyroid Stimulating Hormone 1.83 uIU/mL (0.27-4.20)
== END 2024-12-14 13:04 | disposition home or self-care (01) ==
LOC: LAB 13:05
PROVIDERS: PCP Electrodiagnostic Medicine; Visit Provider Internal Medicine
DX: G31.84 Mild cognitive impairment of uncertain or unknown etiology (principal)
CPT/HCPCS: 36415; 84439; 84443

== ENCOUNTER → 2024-12-21 14:35 | Outpatient (BNVA) | payer MEDICARE, OTHER, SELFPAY | PROVIDERS: PCP Electrodiagnostic Medicine; Visit Provider Internal Medicine Endocrinology, Diabetes & Metabolism | DX: G31.84 Mild cognitive impairment of uncertain or unknown etiology (principal); E03.9 Hypothyroidism, unspecified; R63.4 Abnormal weight loss; Z13.820 Encounter for screening for osteoporosis; R73.09 Other abnormal glucose; D64.9 Anemia, unspecified | CPT/HCPCS: 99203 ==

== ENCOUNTER 2025-01-09 12:20 | Outpatient (CLI) | payer MEDICARE, OTHER, SELFPAY ==
--- NOTE | 2025-01-09 12:27 | MM_ITS ---
WS: [id number] BILATERAL 3D TOMOSYNTHESIS DIGITAL SCREENING MAMMOGRAPHY WITH CAD CLINICAL INFORMATION: SCREENING HISTORY: Screening mammogram. No current complaints. COMPARISON: 2023 TECHNIQUE: Bilateral CC and MLO views. FINDINGS: The breasts are composed of heterogeneous fibroglandular density tissue, which can limit the detection of small underlying mass lesions. No suspicious mass, asymmetry, calcifications, or architectural distortion. No evidence of malignancy. Punctate and lucent centered calcifications. MM/MM [facility] tomosynthesis [id number] IMPRESSION: DENSITY: The breasts are heterogeneously dense, which may obscure small masses. BI-RADS: 2 - Benign FOLLOW UP: 1 Year Follow-up Recommend return to annual screening mammography.
== END 2025-01-09 12:21 | disposition home or self-care (01) ==
LOC: RAD 12:21
PROVIDERS: PCP Electrodiagnostic Medicine; Visit Provider Electrodiagnostic Medicine
DX: Z12.31 Encounter for screening mammogram for malignant neoplasm of breast (principal); R92.323 Mammographic fibroglandular density, bilateral breasts; R92.333 Mammographic heterogeneous density, bilateral breasts; R92.1 Mammographic calcification found on diagnostic imaging of breast
CPT/HCPCS: 77063; 77067

== ENCOUNTER → 2025-02-02 11:00 | Outpatient (BNVA) | payer MEDICARE, OTHER, SELFPAY | PROVIDERS: PCP Electrodiagnostic Medicine; Visit Provider Nurse Practitioner Family | DX: L30.4 Erythema intertrigo (principal); L57.8 Other skin changes due to chronic exposure to nonionizing radiation; D22.5 Melanocytic nevi of trunk | CPT/HCPCS: 99213 ==